=== PATIENT | female | born 1965 | race Caucasian/White ===

== ENCOUNTER 2019-04-12 19:23 | Emergency (ER) | payer OTHER ==
--- NOTE | 2019-04-12 22:10 | ER Document Report ---
ED Medical Screen (RME) - General Chief Complaint: Abdominal Pain Stated Complaint: STOMACH PAIN Time Seen by Provider: 04/12/19 22:07 Mode of Arrival: Ambulatory Information source: Patient Notes: 54-year-old female scented to ED for complaint of upper abdominal pain, nausea and vomiting, and no diarrhea. She states she was recently started on metformin January 27. She states she had a diarrhea when starting the metformin for about 2 weeks but that is been resolved. She states she has been on steroids multiple times recently due to pain in knee and back with rashes. She states she had a lot of fluid removed from 1 of her knees since starting on metformin. She states her sugars been up and down up and down. Patient is alert oriented respirations regular nonlabored speaking in full sentences. We will get blood work and a ultrasound at this time and then we will get her seen by 1 of the providers. I have greeted and performed a rapid initial assessment of this patient. A comprehensive ED assessment and evaluation of the patient, analysis of test results and completion of medical decision making process will be conducted by an additional ED providers. Physical Exam - Vital signs Vitals: Temp Pulse Resp BP Pulse Ox 98.5 F 80 18 170/85 H 100 04/12/19 20:43 04/12/19 20:43 04/12/19 20:43 04/12/19 20:43 04/12/19 20:43 Course - Vital Signs Vital signs: Temp Pulse Resp BP Pulse Ox 98.5 F 80 18 170/85 H 100 04/12/19 20:43 04/12/19 20:43 04/12/19 20:43 04/12/19 20:43 04/12/19 20:43
[2019-04-12] MEDS ORDERED: NORMAL SALINE 1000 ML 1,000 ML IV ONE (23:37)
[2019-04-12] MEDS ORDERED: HYDROMORPHONE HCL INJ/PF 2 MG/ML AMPULE IV ONE (23:37)
[2019-04-12 23:58] LABS: ABSOLUTE EOSINOPHILS # (AUTO) 0.2 10^3/uL (0.0-0.6); ABSOLUTE LYMPHOCYTES (AUTO) 2.3 10^3/uL (0.5-4.7); ABSOLUTE MONOCYTES (AUTO) 0.5 10^3/uL (0.1-1.4); ABSOLUTE NEUT (AUTO) 3.2 10^3/uL (1.7-8.2); BASOPHILS % (AUTO) 0.5 % (0-2); EOSINOPHILS % (AUTO) 3.6 % (0-6); HEMATOCRIT 41.8 % (36.0-47.0); HEMOGLOBIN 14.5 g/dL (12.0-15.5); LYMPHOCYTES % (AUTO) 36.3 % (13-45); MEAN CORPUSCULAR HGB CONC 34.7 g/dL (32.0-36.0); MEAN CORPUSCULAR VOLUME 92 fl (80-97); MONOCYTES % (AUTO) 8.6 % (3-13); PLATELET COUNT 141 10^3/uL (150-450); RED BLOOD COUNT 4.53 10^6/uL (3.72-5.28); RED CELL DISTRIBUTION WIDTH 13.4 % (11.5-14.0); TOTAL CELLS COUNTED % (AUTO) 100 %; WHITE BLOOD COUNT 6.2 10^3/uL (4.0-10.5)
--- NOTE | 2019-04-12 23:58 | RADIOLOGY REPORT (SQ) ---
EXAM DESCRIPTION: US ABDOMEN LIMITED COMPLETED DATE/TME: 04/12/2019 22:11 CLINICAL HISTORY: 54 years, Female, Upper abdominal pain, diabetic, possible pancreati COMPARISON: None. TECHNIQUE: 68 images. Grayscale color and spectral Doppler LIMITATIONS: None. FINDINGS: The liver is mildly heterogeneous. It is otherwise unremarkable. No intrahepatic or extra hepatic biliary ductal dilatation. Common bile duct measures under 3 mm. Visualized midline structures are unremarkable. Portal vein is patent and appropriate in the visualized portion. The gallbladder is nondistended without cholelithiasis or cholecystitis. Right kidney measures 9.6 cm. It is unremarkable. IMPRESSION: No acute abnormality is identified right upper quadrant. Pancreas is unremarkable in the visualized portion. If there is suspicion suspicion for pancreatitis CT scanning with intravascular contrast would be the next imaging step in evaluation copyright 2011 [employer]- All Rights Reserved
[2019-04-13 00:19] LABS: ALBUMIN 4.3 g/dL (3.5-5.0); ALKALINE PHOSPHATASE 88 U/L (38-126); ANION GAP 11 (5-19); ASPARTATE AMINO TRANSFERASE 43 U/L (14-36); BILIRUBIN,DIRECT 0.3 mg/dL (0.0-0.4); BILIRUBIN,TOTAL 0.9 mg/dL (0.2-1.3); BLOOD UREA NITROGEN 18 mg/dL (7-20); CALCIUM 9.3 mg/dL (8.4-10.2); CARBON DIOXIDE 26 mmol/L (22-30); CHLORIDE 102 mmol/L (98-107); GLUCOSE 122 mg/dL (75-110); POTASSIUM 4.6 mmol/L (3.6-5.0)
--- NOTE | 2019-04-13 00:52 | ER Document Report ---
ED General - General Chief Complaint: Abdominal Pain >50 Stated Complaint: STOMACH PAIN Time Seen by Provider: 04/12/19 22:07 Mode of Arrival: Ambulatory TRAVEL OUTSIDE OF THE [place] IN LAST 30 DAYS: No - HPI Notes: Patient is a 54-year-old female who presents to the emergency department for evaluation of abdominal pain, nausea, vomiting. She states symptoms of been going on for the last several days. She seems to think they are worsened by food, states she has had a diminished appetite. She is had some significant nausea and 1 or 2 episodes of emesis. It was nonbloody, nonbilious. She is still urinating. She has had normal bowel movements. She states the pain "feels like a hook" that goes from her epigastrium, around her right upper quadrant area, and into her back. Patient states that she had significant diarrhea after starting metformin in January, but this is resolved. Patient also had "fluid on her left knee" which was aspirated. She states has been on steroids multiple times for arthritic pain and rashes. - Related Data Allergies/Adverse Reactions: sumatriptan [From Imitrex] Allergy (Verified 04/13/19 00:45) Home Medications: List reviewed. Metformin, lisinopril, Neurontin, baclofen, Adderall Past Medical History - General Information source: Patient - Social History Smoking Status: Current Every Day Smoker Family History: Reviewed & Not Pertinent Patient has suicidal ideation: No Patient has homicidal ideation: No - Past Medical History Cardiac Medical History: Reports: Hx Hypertension Endocrine Medical History: Reports: Hx Diabetes Mellitus Type 2 Psychiatric Medical History: Reports: Hx Attention Deficit Hyperactivity Disorder Review of Systems - Review of Systems Gastrointestinal: See HPI Musculoskeletal: See HPI Skin: See HPI -: Yes All other systems reviewed and negative Physical Exam - Vital signs Vitals: Temp Pulse Resp BP Pulse Ox 98.5 F 80 18 170/85 H 100 04/12/19 20:43 04/12/19 20:43 04/12/19 20:43 04/12/19 20:43 04/12/19 20:43 - Notes Notes: Vital signs reviewed, please refer to chart. Head is normocephalic, atraumatic. Pupils equal round, reactive to light. Neck is supple without meningismus. He art is regular rate and rhythm. Lungs are clear to auscultation bilaterally. Abdomen is soft, tender in the left upper quadrant, lateral right upper quadrant without rebound or guarding, normoactive bowel sounds throughout. Extremities without cyanosis, clubbing. Posterior calves are nontender. Peripheral pulses are equal. Skin is warm and dry. Patient is awake, alert, neurological exam is nonfocal. Course - Re-evaluation Re-evalutation: 04/13/19 00:50 Patient presents to the emergency department for evaluation. She had laboratory investigations and ultrasound is ordered through triage. Ultrasound is largely unremarkable. Laboratory investigation showed a very mildly elevated lipase, but certainly not to the level concerning for pancreatitis. Still awaiting urinalysis. Patient is feeling improved here. We talked at length about the differential diagnosis, including biliary colic, GERD, gastritis, duodenitis, gastric ulcer. Of course I explained that this list is not exhaustive. Awaiting urine before final decision. Patient is stable, we will continue to monitor. 04/13/19 02:03 Patient continues to have pain. Her laboratory investigations revealed a very modestly elevated lipase, but certainly not to the level of pancreatitis at this point. She continues to have pain, was given Pepcid and Dilaudid. Another abdominal exam fails to reveal any surgical signs, still she is just diffusely tender. She is told to increase her [id number] Prilosec to twice daily. She is told to stick mostly to clear liquids. I am unclear at this point as to whether or not she had pancreatitis and it is improving, or if she is increasing her lipase at this time and has early pancreatitis. At any rate, her abdominal exam is nonsurgical, her vital signs are unremarkable, and her lipase is normal. She is told she should follow-up with her primary care provider tomorrow morning. She voiced understanding to this and the patient was discharged. - Vital Signs Vital signs: Temp Pulse Resp BP Pulse Ox 98.5 F 80 18 170/85 H 100 04/12/19 20:43 04/12/19 20:43 04/12/19 20:43 04/12/19 20:43 04/12/19 20:43 - Laboratory Result Diagrams: 04/12/19 23:43 04/12/19 23:43 Laboratory results interpreted by me: 04/12/19 04/12/19 04/12/19 22:13 23:43 23:43 Plt Count 141 L Glucose 122 H POC Glucose 127 H AST 43 H Lipase 339.1 H Urine Protein Urine Ketones Urine Ascorbic Acid 04/13/19 01:17 Plt Count Glucose POC Glucose AST Lipase Urine Protein 30 H Urine Ketones 80 H Urine Ascorbic Acid 40 H Discharge - Discharge Clinical Impression: Upper abdominal pain Condition: Stable Disposition: HOME, SELF-CARE Instructions: Abdominal Pain ([facility]) Additional Instructions: As discussed, your laboratory investigations showed a very mildly elevated lipase, but no other significant abnormalities. Your ultrasound was unremarkabl e. Stick to clear liquid diet. Follow-up with your primary care provider tomorrow. Increase your Prilosec to twice daily as discussed. If you develop increased pain, worsened vomiting, or any other new or concerning symptoms, please return immediately to the emergency department for reevaluation.
[2019-04-13 01:33] LABS: APPEARANCE,URINE CLEAR; BILIRUBIN,URINE NEGATIVE (NEGATIVE); COLOR,URINE YELLOW; GLUCOSE, URINE NEGATIVE (NEGATIVE); KETONES,URINE 80 mg/dL (NEGATIVE); PROTEIN,URINE 30 mg/dL (NEGATIVE); URINE SPECIFIC GRAVITY 1.025; UROBILINOGEN,URINE NEGATIVE mg/dL (<2.0)
[2019-04-13] MEDS ORDERED: FAMOTIDINE INJ/PF 20 MG/2 ML SDV IV ONE (01:55)
[2019-04-13] MEDS ORDERED: HYDROMORPHONE HCL INJ/PF 2 MG/ML AMPULE IV ONE (02:03)
[2019-04-13 02:30] VITALS: BP 178/90
== END 2019-04-13 02:36 | disposition home or self-care (01) ==
LOC: ER 19:23
DX: R10.10 Upper abdominal pain, unspecified (principal); R11.2 Nausea with vomiting, unspecified; R63.0 Anorexia; R19.7 Diarrhea, unspecified; Z79.84 Long term (current) use of oral hypoglycemic drugs; Z79.899 Other long term (current) drug therapy; Z88.8 Allergy status to other drugs, medicaments and biological substances; F17.200 Nicotine dependence, unspecified, uncomplicated; E11.9 Type 2 diabetes mellitus without complications; I10 Essential (primary) hypertension
CPT/HCPCS: 96376; 99284; 96361; 96374; 96375; 36415; 82962; 83690; 85025; 80053; 81001; 76705; J1170 ×2; J7030; S0028